=== PATIENT | male | born 1970 | race Hispanic/Latino ===

== ENCOUNTER 2017-05-10 00:19 | Emergency (ER) | payer SELFPAY ==
--- NOTE | 2017-05-10 00:32 | ERPHSYRPT ---
- History of Present Illness Time Seen by Provider: 05/10/17 00:27 Source: patient, EMS Exam Limitations: no limitations Physician History: Pt was found to have alleged etoh consumption and brought to ER for checkout; no hx trauma, has orientation x3 and reports having consumed etoh; he has no signs of trauma and no medical signs on exam or symptoms he has no SI/HI he declines further testing in ER at this time - will will await family to participate in this decision and observe meantime for any problems. Timing/Duration: today Severity of Symptoms-Max: mild Severity of Symptoms-Current: mild Associated Symptoms: denies symptoms Previous symptoms: no prior history - Past Medical History Pertinent Past Medical History: No - Review of Systems Constitutional: No Fever, No Chills Eyes: No Symptoms Ears, Nose, & Throat: No Symptoms Respiratory: No Cough, No Dyspnea Cardiac: No Chest Pain, No Edema, No Syncope Abdominal/Gastrointestinal: No Abdominal Pain, No Nausea, No Vomiting, No Diarrhea Genitourinary Symptoms: No Dysuria Musculoskeletal: No Back Pain, No Neck Pain Skin: No Rash Neurological: No Dizziness, No Focal Weakness, No Sensory Changes Psychological: No Symptoms, Other (pt admits to ETOH use tonight), No Depression , No Suicidal Ideations, No Hallucinations Endocrine: No Symptoms Hematologic/Lymphatic: No Symptoms Immunological/Allergic: No Symptoms All Other Systems: Reviewed and Negative - Nursing Vital Signs Nursing Vital Signs: Initial Vital Signs Pulse Rate 88 05/10/17 00:39 Respiratory Rate 20 05/10/17 00:39 Blood Pressure 116/85 05/10/17 00:39 O2 Sat by Pulse Oximetry 95 05/10/17 00:39 Pain Scale Pain Intensity 0 pt is declining - Physical Exam General Appearance: no apparent distress Eyes, Ears, Nose, Throat Exam: normal ENT inspection, moist mucous membranes Neck Exam: normal inspection, non-tender, supple Respiratory Exam: normal breath sounds, lungs clear, No respiratory distress Cardiovascular Exam: regular rate/rhythm, No edema Gastrointestinal/Abdominal Exam: soft, No tenderness, No distention Extremities Exam: normal inspection, normal range of motion, No evidence of injury, No edema Peripheral Pulses: carotid (R): 2+, carotid (L): 2+, femoral (R): 2+, femoral (L ): 2+, dorsalis-pedis (R): 2+, dorsalis-pedis (L): 2+ Current Suicidality: denies suicide plan Neurological Exam: alert, 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, oriented x 3 Appearance: appropriate appearance, appropriate insight, neat, no memory impairment, denies illness Behavior/Eye Contact/Speech: alert & cooperative Thoughts/Hallucinations: normal thought pattern, no apparent hallucination Skin Exam: normal color, warm, dry, No rash Oxygen Delivery: Room Air - Course Nursing assessment & vital signs reviewed: Yes - Progress Progress: improved, re-examined Progress Note: 05/10/17 01:18 discussed with family present in ER ( ) and in shared decision making for which the has capacity and normal mental status she with pt agreeing decline further testing / cavanaugh in er and wish dc to f/u outpt counselling to which pt agrees, and will return if any symptoms occur or other concerns. 05/10/17 01:20 Counseled pt/family regarding: drug and/or alcohol abuse, diagnosis, need for follow-up - Departure Time of Disposition: 01:19 Departure Disposition: Home Clinical Impression: Alcohol consumption binge drinking Condition: Good Critical Care Time: No Referrals: DOCTOR,NO FAMILY [Primary Care Provider] - Instructions: Alcohol Abuse and Alcoholism Additional Instructions: followup with couseling for alcohol use and return meantime if any concenrs. no driving until sober tomorrow. family member to stay with you tonight
[2017-05-10] MEDS ORDERED: Zofran 4 MG/2 ML VIAL IV ONE (01:19)
[2017-05-10] MEDS ORDERED: Zofran 4 MG/2 ML VIAL ONE (01:21)
[2017-05-10 01:45] VITALS: BP 117/81; PULSE 72; O2SAT 98
== END 2017-05-10 01:46 | disposition home or self-care (01) ==
LOC: ED 00:19
DX: F10.129 Alcohol abuse with intoxication, unspecified (principal)
CPT/HCPCS: 36000; 96374; 99283; 99284; J2405